=== PATIENT | male | born 1985 | race African-American/Black ===

== ENCOUNTER 2018-07-25 20:57 | Emergency (ER) | payer OTHER ==
[2018-07-25 21:44] VITALS: BP 134/78; PULSE 90; TEMP 98.7; BMI 42.8
--- NOTE | 2018-07-25 21:47 | PDOC ---
Rapid Medical Evaluation Chief Complaint: Chest Pain Time Seen by Provider: 07/25/18 21:36 Medical Evaluation: 07/25/18 21:42 I have performed a brief in-person evaluation of this patient. The patient presents with a chief complaint of: chest pain , worse with inspiration/ no fevers- + chronic cough with nasal drainage Pertinent physical exam findings: pale/ nop SOB, throat clear I have ordered the following: nothing The patient will proceed to the ED for further evaluation. Discharge Disposition - Diagnosis Pleuritic chest pain - Referrals - Patient Instructions - Post Discharge Activity
--- NOTE | 2018-07-25 22:22 | PDOC ---
*Physical Exam - Vital Signs Last Vital Signs Temp Pulse Resp BP Pulse Ox 98.7 F 90 18 134/78 98 07/25/18 21:40 07/25/18 21:40 07/25/18 21:40 07/25/18 21:40 07/25/18 21:40 Medical Decision Making - Medical Decision Making 07/25/18 22:22 Patient seen by the advanced practice provider under my direct supervision. Ancillary testing reviewed as necessary. I agree with plan as outlined by the advanced practice provider. *DC/Admit/Observation/Transfer Diagnosis at time of Disposition: Pleuritic chest pain - Referrals Referrals: Kolton Montero MD [Primary Care Provider] - - Patient Instructions - Post Discharge Activity
[2018-07-25 22:46] LABS: BASO % 0.5 % (0-2.0); EOS % 0.3 % (0-4.5); HEMATOCRIT 41.7 % (35.4-49); HEMOGLOBIN 13.8 GM/dL (11.7-16.9); LYMPH % 17.3 % (8-40); MCH 28.8 pg (25.7-33.7); MCHC 33.2 g/dl (32.0-35.9); MEAN CELL VOLUME 86.7 fl (80-96); MEAN PLT VOLUME 7.8 fl (7.5-11.1); MONO % 7.1 % (3.8-10.2); NEUT % 74.8 % (42.8-82.8); PLATELET COUNT 293 K/MM3 (134-434); RBC 4.81 M/mm3 (4.00-5.60); RDW 14.1 % (11.9-15.9); WHITE BLOOD COUNT 11.2 K/mm3 (4.0-10.0)
--- NOTE | 2018-07-25 23:06 | PDOC ---
History of Present Illness - General Chief Complaint: Chest Pain Stated Complaint: CHEST PAIN Time Seen by Provider: 07/25/18 21:36 History Source: Patient Exam Limitations: Clinical Condition - History of Present Illness Initial Comments: 07/26/18 00:12 Patient with no significant past medical history present with complaint of left- sided upper chest pain which has been intermittent since this morning and only comes on with deep breathing. Patient reported has been having persistent cough for a year now which is dry cough and followed up in the ER a year ago for the cough and chest x-ray was normal. Patient has not had any follow-up since then. Denies fever, chills, nausea, vomiting, dizziness. Denies any other symptoms Timing/Duration: 4-6 hours Past History - Past Medical History Allergies/Adverse Reactions: Allergies Allergy/AdvReac Type Severity Reaction Status Date / Time No Known Allergies Allergy Verified 07/25/18 21:44 Home Medications: Ambulatory Orders Acetaminophen [Tylenol] 650 mg PO PRN 07/26/18 Benzonatate [Tessalon Pearls -] 100 mg PO TID PRN #21 capsule 07/26/18 Methylprednisolone [Medrol Dose Toni] 4 mg PO ASDIR #21 tablet 07/26/18 COPD: No HTN: Yes - Suicide/Smoking/Psychosocial Hx Smoking History: Never smoked Have you smoked in the past 12 months: No Information on smoking cessation initiated: No Hx Alcohol Use: No Drug/Substance Use Hx: No Review of Systems - Review of Systems Able to Perform ROS?: Yes Is the patient limited [place]ian proficient: No Constitutional: No: Chills, Fever, Malaise HEENTM: No: Symptoms Reported, See HPI, Eye Pain, Blurred Vision, Tearing, Recent change in vision, Double Vision, Cataracts, Ear Pain, Ocular Prothesis, Ear Discharge, Nose Pain, Nose Congestion, Tinnitus, Nose Bleeding, Hearing Loss , Throat Pain, Throat Swelling, Mouth Pain, Dental Problems, Difficulty Swallowing, Mouth Swelling, Other Respiratory: Yes: Symptoms reported, See HPI, Cough (chronic cough for a year). No: Orthopnea, Shortness of Breath, SOB with Exertion, SOB at Rest, Stridor, Wheezing, Productive cough, Hemoptysis, Other Cardiac (ROS): Yes: Symptoms Reported, See HPI, Chest Pain (intermittent left upper chest). No: Edema, Irregular Heart Rate, Lightheadedness, Palpitations, Syncope, Chest Tightness, Other ABD/GI: No: Nausea, Vomiting Neurological: No: Headache, Dizziness All Other Systems: Reviewed and Negative *Physical Exam - Vital Signs Last Vital Signs Temp Pulse Resp BP Pulse Ox 98.7 F 90 18 134/78 98 07/25/18 21:40 07/25/18 21:40 07/25/18 21:40 07/25/18 21:40 07/25/18 21:40 - Physical Exam Comments: 07/25/18 23:05 GENERAL: Well developed, well nourished. Awake and alert. No acute distress. HEENT: Normocephalic, atraumatic. PERRLA, EOMI. No conjunctival pallor. Sclera are non-icteric. Moist mucous membranes. Oropharynx is clear. NECK: Supple. Full ROM. CARDIOVASCULAR: Regular rate and rhythm. No murmurs, rubs, or gallops. Distal pulses are 2+ and symmetric. PULMONARY: No evidence of respiratory distress. Lungs clear to auscultation bilaterally. No wheezing, rales or rhonchi. ABDOMINAL: Soft. Non-tender. Non-distended. No rebound or guarding. No organomegaly. Normoactive bowel sounds. MUSCULOSKELETAL Normal range of motion at all joints. mild reproduceable TTP to left 2nd intercostal spasm SKIN: Warm and dry. Normal capillary refill. No rashes. NEUROLOGICAL: Alert, awake, appropriate. Gait is normal without ataxia. PSYCHIATRIC: Cooperative. Good eye contact. Appropriate mood 07/26/18 02:30 General Appearance: Yes: Nourished, Appropriately Dressed. No: Apparent Distress ED Treatment Course - LABORATORY CBC & Chemistry Diagram: 07/25/18 22:32 07/25/18 22:32 - ADDITIONAL ORDERS Additional order review: 07/25/18 22:32 RBC 4.81 MCV 86.7 MCHC 33.2 RDW 14.1 MPV 7.8 Neutrophils % 74.8 Lymphocytes % 17.3 Monocytes % 7.1 Eosinophils % 0.3 Basophils % 0.5 - RADIOLOGY Radiology Studies Ordered: Category Date Time Status CHEST PA & LAT [RAD] Stat Radiology 07/25/18 22:18 Taken Medical Decision Making - Medical Decision Making 07/26/18 00:13 Patient with no significant past medical history present with complaint of left- sided upper chest pain which has been intermittent since this morning. Patient reported has been having persistent cough for a year now which is dry cough and followed up in the ER a year ago for the cough and chest x-ray was normal. Patient has not had any follow-up since then. Denies fever, chills, nausea, vomiting, dizziness. Denies any other symptoms Clinical exam unremarkable with normal cardio and lung exams. Mild reproducible tenderness to left upper chest and the second intercostal space. Otherwise normal exam. EKG shows normal sinus rhythm. CBC and cardiac profile unremarkable. Chest x- ray shows no acute pathology. Patient symptoms likely cough with costochondritis from cough . Patient is stable for discharge on Medrol Toni and Tessalon Perles for cough with pulmonology follow-up. *DC/Admit/Observation/Transfer Diagnosis at time of Disposition: Costochondral chest pain, Cough - Discharge Dispostion Disposition: HOME Condition at time of disposition: Stable Decision to Admit order: No - Prescriptions Prescriptions: Benzonatate [Tessalon Pearls -] 100 mg PO TID PRN #21 capsule PRN Reason: Cough Methylprednisolone [Medrol Dose Toni] 4 mg PO ASDIR #21 tablet - Referrals Referrals: Brett Marquez MD [Staff Physician] - - Patient Instructions Printed Discharge Instructions: DI for Costochondritis, DI for Chest Pain Additional Instructions: Your labs and chest x-ray was normal. Your symptoms is likely from muscle pain from coughing. Take medications as prescribed. Follow-up with referred dietetic aide for persistent cough - Post Discharge Activity
[2018-07-25 23:09] LABS: ALBUMIN 4.1 g/dl (3.4-5.0); ALK PHOS 59 U/L (45-117); ANION GAP 8 MMOL/L (8-16); BILIRUBIN,TOTAL 0.3 mg/dL (0.2-1); BLOOD UREA NITROGEN 19.9 mg/dL (7-18); CALCIUM 9.5 mg/dL (8.5-10.1); CHLORIDE 103 mmol/L (98-107); CO2 26 mmol/L (21-32); CREATININE 1.2 mg/dL (0.55-1.3); GLUCOSE,RANDOM 94 mg/dL (74-106); POTASSIUM 3.9 mmol/L (3.5-5.1); SGOT/AST 21 U/L (15-37); SGPT/ALT 38 U/L (13-61); SODIUM 137 mmol/L (136-145); TOT PROT 8.6 g/dl (6.4-8.2)
--- NOTE | 2018-07-26 16:29 | EKG ---
Test Reason : Blood Pressure : / mmHG Vent. Rate : 097 BPM Atrial Rate : 097 BPM P-R Int : 146 ms QRS Dur : 102 ms QT Int : 346 ms P-R-T Axes : 011 034 -20 degrees QTc Int : 439 ms NORMAL SINUS RHYTHM NONSPECIFIC T WAVE ABNORMALITY ABNORMAL ECG NO PREVIOUS ECGS AVAILABLE Confirmed by PRIMITIVO MARTINEZ, ANUJ ([id number]) on 07/26/2018 4:29:02 PM Referred By: Confirmed By:ANUJ LANGFORD MD
== END 2018-07-26 00:25 | disposition home or self-care (01) ==
LOC: JER 20:57
DX: M94.0 Chondrocostal junction syndrome [Tietze] (principal)
CPT/HCPCS: 36415; 71046-TC-FY; 80053; 82550; 82553; 84484; 85025; 93005; 93010; 99282-25